=== PATIENT | male | born 2000 | race Caucasian/White ===

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

== ENCOUNTER 2020-08-23 19:57 | Emergency (ER) | payer BC, OTHER ==
[2020-08-23] MEDS ORDERED: MORPHINE SULFATE 4 MG/ML SYRINGE IV STA (20:05)
--- NOTE | 2020-08-23 20:10 | ED ---
Upper Extremity HPI - General Chief Complaint: Extremity Injury, Upper Stated Complaint: R Elbow Injury Time Seen by Provider: 08/23/20 20:02 Source: patient, RN notes reviewed Mode of arrival: ambulatory Limitations: no limitations - History of Present Illness Initial Comments: Patient is a 20-year-old male that presents to emergency department with right elbow injury. He notes his arm resting when he felt a snap/pop in everything can get up. He notes that he is in a significant amount of pain at 7 out of 10 with no relief. He notes decreased epic kaleidoscope analyst strength secondary to pain but is able to move his fingers and full range of motion. He noted that is very painful to move his elbow at this time and would like some pain medication. Patient denied any chest pain shortness of breath headache nausea vomiting diarrhea constipation fever fatigue chills numbness or tingling in his right upper extremity. - Related Data Home Medications Medication Instructions Recorded Confirmed D-Methorphan/PE/Acetaminophen 2 cap PO Q6H PRN 06/19/17 06/19/17 [Vicks Dayquil Liquicaps] Previous Rx's Medication Instructions Recorded Amoxic-Pot Clav 875-125Mg 1 tab PO Q12HR #14 tablet 06/19/17 [Augmentin 875-125] Loratadine [Claritin] 10 mg PO DAILY #30 tab 06/19/17 Azithromycin [Zithromax Z-pack (6 0 mg PO DIRECTED #6 tab 01/15/18 tabs)] Fluticasone Propionate [Flonase 1 - 2 spray EA NOSTRIL DAILY 5 01/15/18 Allergy Relief] Days ml Amoxicillin/Potassium Clav 1 each PO Q12HR #20 tab 03/13/18 [Augmentin 875-125 Tablet] Fluticasone Propionate [Flonase 1 - 2 spray EA NOSTRIL DAILY 5 03/13/18 Allergy Relief] Days ml guaiFENesin-DM 600/30MG [Mucinex 1 each PO Q12HR 5 Days #10 03/13/18 Dm] tab.er.12h HYDROcodone/APAP 7.5-325MG [Marston 1 tab PO Q4H PRN 3 Days #18 tab 08/23/20 7.5-325] Allergies Allergy/AdvReac Type Severity Reaction Status Date / Time No Known Allergies Allergy Verified 08/23/20 20:01 Review of Systems ROS Statement: Those systems with pertinent positive or pertinent negative responses have been documented in the HPI. ROS Other: All systems not noted in ROS Statement are negative. Past Medical History Past Medical History: No Reported History History of Any Multi-Drug Resistant Organisms: None Reported Past Surgical History: Ear Surgery Additional Past Surgical History / Comment(s): RIGHT EAR SURGERY Past Psychological History: No Psychological Hx Reported Past Alcohol Use History: None Reported Past Drug Use History: None Reported General Exam Limitations: no limitations General appearance: alert, in no apparent distress, in distress (Secondary to pain. mild) Head exam: Present: atraumatic, normocephalic, normal inspection Eye exam: Present: normal appearance, PERRL, EOMI. Absent: scleral icterus, conjunctival injection, periorbital swelling Neck exam: Present: normal inspection Respiratory exam: Present: normal lung sounds bilaterally. Absent: respiratory distress, wheezes, rales, rhonchi, stridor Cardiovascular Exam: Present: regular rate, normal rhythm, normal heart sounds. Absent: systolic murmur, diastolic murmur, rubs, gallop, clicks Right Elbow exam: Present: normal inspection, tenderness (To light palpation). Absent: full ROM (Secondary to pain secondary to pain), laceration, ecchymosis, deformity, crepitus, erythema Neurological exam: Present: alert, oriented X3, CN II-XII intact Psychiatric exam: Present: normal affect, normal mood Skin exam: Present: warm, dry, intact, normal color. Absent: rash Course Vital Signs 08/23/20 19:58 Temperature 97.9 F Pulse Rate 109 H Respiratory 18 Rate Blood Pressure 107/58 O2 Sat by Pulse 98 Oximetry Procedures - Orthopedic Splinting/Casting Injury #1 Side: right (Humerus) Upper Extremity Immobilizer: sugar tong splint, Leonides wrap, synthetic pre-padded splint Other Orthopedic Equipment: other (Swelling) Medical Decision Making - Medical Decision Making 20-year-old male complaining of right elbow pain after a wrestling injury. X-ray right elbow, 4 mg of morphine ordered. Patient will be reevaluated after he gets comfortable. Patient arm was splinted, tolerated well had moderate pain. Dr. love was consult that and said he will follow-up outpatient Monday. Case discussed with Dr. Packer, patient discharge home. - Radiology Data Radiology results: report reviewed, image reviewed x double-jointed anti-. There is no evidence of joint effusion. There is acute oblique fracture distal shaft humerus. There is displacement and ileus. Acute spiral fracture distal shaft of the right humerus with 10 mm displaced. Disposition Clinical Impression: Displaced spiral fracture of shaft of right humerus Disposition: HOME SELF-CARE Condition: Stable Instructions (If sedation given, give patient instructions): Arm Fracture in Adults (ED) Additional Instructions: Please return to the Emergency Department if symptoms worsen or any other concerns. Follow-up with Dr. Love on Monday Take pain medication as prescribed throughout the day to cover symptoms. Can alternate with Motrin in between as needed. Wear sling throughout the day and at night. Avoid any shortness activity or movement. Prescriptions: HYDROcodone/APAP 7.5-325MG [Marston 7.5-325] 1 tab PO Q4H PRN 3 Days #18 tab PRN Reason: Severe Pain Is patient prescribed a controlled substance at d/c from ED?: Yes When asked, does pt state using other controlled substances?: No If prescribed controlled substance>3 days was MAPS reviewed?: Prescribed <3 Days If opioid is for acute pain is fill amount 7 days or less?: Yes Referrals: Willy Holt Jr, [Primary Care Provider] - 1-2 days Time of Disposition: 22:00
--- NOTE | 2020-08-23 20:47 | XR ---
EXAMINATION TYPE: XR elbow complete RT DATE OF EXAM: 08/23/2020 COMPARISON: NONE HISTORY: Pain TECHNIQUE: 2 views FINDINGS: The elbow joint is anatomic. There is no evidence of elbow joint effusion. There is acute oblique fracture distal shaft of the humerus. There is displacement 10 mm. IMPRESSION: Acute spiral fracture distal shaft of the humerus with 10 mm displacement.
[2020-08-23] MEDS ORDERED: HYDROmorphone 1 MG/ML 1 ML SYRINGE IVP STA (20:58)
[2020-08-23] MEDS ORDERED: HYDROcodone/APAP 7.5-325MG 1 EACH TAB PO ONE (21:56)
[2020-08-23] MEDS ORDERED: ACET/COD 300 MG/30 MG STARTER PACK 6 TAB BTL PO STA (21:56)
[2020-08-23] MEDS ORDERED: HYDROmorphone 0.5 MG/0.5 ML SYRINGE IVP STA (21:58)
[2020-08-23 22:08] VITALS: BP 144/82; RESP 20; TEMP 98.3
[2020-08-23 22:09] VITALS: PULSE 90
== END 2020-08-23 22:16 | disposition home or self-care (01) ==
LOC: EC 19:57
DX: S42.331A Displaced oblique fracture of shaft of humerus, right arm, initial encounter for closed fracture (principal); X50.0XXA Overexertion from strenuous movement or load, initial encounter
CPT/HCPCS: 73080; 29125; 99283; 96374; 96375; 96376; J2270; J1170 ×2

== ENCOUNTER 2020-09-04 11:18 | Day surgery (SDC) | payer OTHER ==
[2020-09-02 11:27] VITALS: BMI 21.7
[~2020-09-04 11:18] MED LIST: DEXAMETHASONE SOD PHOSPHATE 4 MG/ML 1 ML VIAL IV ONE; LACTATED RINGERS 1,000 ML IV SCH; MIDAZOLAM 2 MG/2 ML VIAL IV PRN; SCOPOLAMINE 1.5MG/72HR PATCH TRANSDERM ONE
[2020-09-04 11:45] VITALS: RESP 16
[2020-09-04] MEDS ORDERED: LIDOCAINE 1% (10MG/ML) FOR IV START INTRADERMA ONE ×2 (11:58→12:23)
[2020-09-04] MEDS: ONDANSETRON 4 MG/2 ML VIAL IVP ONE ×2 (12:05→16:10)
[2020-09-04] MEDS ORDERED: fentaNYL (PF) 50 MCG/ML 2 ML AMP IVP ONE (12:23)
--- NOTE | 2020-09-04 12:59 | P.ANPRN ---
Procedure Note - Anesthesia - Nerve Block Performed Right Supraclavicular Single Time Out Performed: Yes (1222) Date of Procedure: 09/04/20 Procedure Start Time: 12:23 Procedure Stop Time: : Location of Patient: PreOp Indication: Acute Post-Operative Pain, Requested by Surgeon Specifically requested for management of pain by DrDayami: Corona Puckett Sedation Type: Sedate with meaningful contact maintained Preparation: Sterile Prep Position: Supine Catheter: None Needle Types: Pajunk Needle Gauge: 21 Ultrasound used to visualize needle placement: Yes Ultrasound used to observe medication spread: Yes Injectate: 0.5% Ropivacaine (see comment for volume) (30cc) Blood Aspirated: No Pain Paresthesia on Injection Noted: No Resistance on Injection: Normal Image Stored and Saved: Yes Events: Uneventful and Well Tolerated
[2020-09-04] MEDS ORDERED: LIDOCAINE 1% INJ 10MG/ML (20 ML MDV) ONE (13:15)
[2020-09-04] MEDS ORDERED: SODIUM CHLORIDE 0.9% 100 ML BAG ONE (13:15)
[2020-09-04] MEDS ORDERED: PROPOFOL 10 MG/ML 20 ML VIAL IV ONE (13:15)
[2020-09-04] MEDS ORDERED: MIDAZOLAM 2 MG/2 ML VIAL ONE (13:15)
[2020-09-04] MEDS ORDERED: TRANEXAMIC ACID 1,000 MG/10 ML VIAL ONE (13:15)
[2020-09-04] MEDS ORDERED: NEOSTIGMINE 1 MG/ML 10 ML VIAL ONE (13:15)
[2020-09-04] MEDS ORDERED: SUCCINYLCHOLINE CHLORIDE 100 MG/5 ML SYR IV ONE (13:15)
[2020-09-04] MEDS ORDERED: fentaNYL (PF) 50 MCG/ML 2 ML AMP ONE (13:15)
[2020-09-04] MEDS ORDERED: ROCURONIUM 10 MG/ML (5 ML VIAL) IV ONE (13:15)
[2020-09-04] MEDS ORDERED: ROPIVACAINE 5 MG/ML 30 ML VIAL ONE (13:15)
[2020-09-04] MEDS ORDERED: GLYCOPYRROLATE 0.2 MG/ML 2 ML VIAL ONE (13:15)
[2020-09-04] MEDS ORDERED: TRANEXAMIC ACID 1,000 MG in SODIUM CHLORIDE 0.9% 100 ML IVPB PRN (13:46)
[2020-09-04] MEDS ORDERED: LACTATED RINGERS 1,000 ML IV ONE (15:00)
--- NOTE | 2020-09-04 15:18 | XR ---
EXAMINATION TYPE: XR elbow limited RT DATE OF EXAM: 09/04/2020 COMPARISON: NONE HISTORY: Postsurgical TECHNIQUE: 3 view submitted FINDINGS: Postoperative changes noted involving the distal humerus. Some of the orthopedic screws are separate from the fixation plate. IMPRESSION: Postoperative changes.
--- NOTE | 2020-09-04 15:22 | P.OP ---
Date of Procedure: 09/04/20 Procedure(s) Performed: PREOPERATIVE DIAGNOSES: 1. Right distal humeral metaphyseal fracture, spiral displaced extra-articular POSTOPERATIVE DIAGNOSES: 1. Right distal humeral metaphyseal fracture, spiral displaced extra-articular PROCEDURES PERFORMED: 1. Right distal humeral fracture open reduction internal fixation using posterior lateral periarticular plate from [employer] ANESTHESIA: Gen. DIRECTOR OF CAREER RESOURCES: Mitzi Longoria PA-C (assistance with: Patient positioning, retraction, exposure, fixation, hemostasis, closure, dressing, splint) COMPLICATIONS: None ESTIMATED BLOOD LOSS: Approximately 100 ml DISPOSITION: To post-anesthesia care unit INDICATIONS: Jim is a 20-year-old male who was arm wrestling and sustained a displaced and angulated semi-spiral fracture of the distal humerus at the metaphyseal region well above the joint. This happened approximately 10 days ago. I have advised open reduction and fixation. I have explained the risks and potential complications of this surgery as being inclusive of but not limited to bleeding, infection, scarring, discomfort, blood vessel and/or nerve damage, radial and/or ulnar nerve injury, malunion, nonunion, stiffness, hardware irritation, deformity, rotational abnormality, need for further surgery, and other risks. We have extensively discussed the risk of stiffness of the elbow joint, which is something that may occur with this kind of injury. We have discussed the need for rehabilitation and occupational therapy to regain motion. The consent form has been signed. PROCEDURE: After appropriate consent was obtained, the patient was taken to the operating room placed in the supine position. Anesthesia was initiated, and after confirmation of adequate anesthesia, the patient was carefully positioned in the lateral decubitus position. Care was taken to make sure that all pressure points were adequately padded. Bolster was secured with Coban for a posterior approach to the humerus. Prepping and draping were completed in the usual aseptic fashion using ChloraPrep, with the arm being prepped free. Timeout was called, confirming patient identity, side, procedure, and administration of antibiotics. 1 g of IV TXA was given intraoperatively as well. Landmarks were outlined with a skin marking pen including medial and lateral epicondyles, path of ulnar nerve, and olecranon. Incision was created over the posterior aspect of the humerus for a length of approximately 20 cm. The incision was carried down through skin and into subcu tissues until muscular fascia was encountered. Triceps fascia was delineated with sharp dissection, and the apex of the triceps fascia was measured 1 inch proximal to this is the likely location of the radial nerve crossing. This was also correlated with distances of 15 centimeters or so from the lateral joint surface, however considering fracture displacement and area was marked within a 3 cm zone. Incision was then carried through the triceps fascia and into the triceps muscle. Triceps splitting approach was performed, the interval between the long head and lateral heads of the triceps was utilized. Meticulous muscular dissection was performed down to bone and hemostasis was obtained along the way using electrocautery. Radial nerve was identified along with its branches and dissected away from the posterior humerus and protected. Fracture site was then encountered. The hematoma was cleared to adequately reduce the fracture site. The fracture was mobilized and reduction was accomplished with gentle longitudinal traction and a [id number]-tr-[id number] reduction forcep. Final reduction was accomplished using a bone-holding forcep. Three 3.5 mm lag screws were placed across the fracture site from lateral to medial. Provisional pins were then removed, and an 8 hole 3.5 mm precontoured posterior lateral periarticular locking plate was called for and minimally further contoured to match this patient's anatomy on the posterior aspect of the lateral column. The plate was placed as centrally as possible proximally. Care was taken when placing the pl ate to apply the plate between the radial nerve and the humerus proximally. The plate was secured with 1 screw to start with, final adjustments were made to the plate position proximally with care to protect and retract the radial nerve. Range of motion was performed to make sure that there was no impingement in the olecranon fossa by the plate. Full range of motion was noted. [address] aced proximally and one bicortical and 5 locking screws distally and all had good position and length based on C-arm imaging. Fracture alignment was anatomic. The incision was thoroughly irrigated, final hemostasis was obtained using electrocautery, and closure was performed. Fascial closure was performed using O strata fix in running fashion, followed by subcutaneous closure with 2-0 Vicryl suture, followed by running subcuticular closure of strata fix and and Exofin cyanoacrylate glue, followed by topical Opteform. A well-padded well molded posterior splint was placed. Vascular status was satisfactory of the hand. Patient tolerated the procedure well and taken to recovery room in stable condition.
--- NOTE | 2020-09-04 15:41 | FL ---
EXAMINATION TYPE: FL guidance operating room DATE OF EXAM: 09/04/2020 HISTORY: Fluoroscopy time 5 seconds of fluoroscopy provided. IMPRESSION: 1. Fluoroscopy time.
[2020-09-04 15:42] VITALS: TEMP 97.3
[2020-09-04] MEDS: HYDROmorphone 0.5 MG/0.5 ML SYRINGE IVP PRN ×4 (16:00→16:20)
[2020-09-04] MEDS ORDERED: KETOROLAC 15 MG/ML 1 ML VIAL IVP ONE (16:09)
[2020-09-04] MEDS ORDERED: MEPERIDINE 50 MG/ML SYRINGE IVP ONE (16:43)
[2020-09-04] MEDS ORDERED: HYDROcodone/APAP 7.5-325MG 1 EACH TAB ONE (16:57)
[2020-09-04] MEDS ORDERED: HYDROcodone/APAP 7.5-325MG 1 EACH TAB PO ONE (17:03)
[2020-09-04 17:25] VITALS: BP 118/62; PULSE 68
== END 2020-09-04 17:48 ==
LOC: OR 11:18
PROVIDERS: ATTEND Orthopaedic Surgery
DX: S42.491A Other displaced fracture of lower end of right humerus, initial encounter for closed fracture (principal); Y93.72 Activity, wrestling; Z79.1 Long term (current) use of non-steroidal anti-inflammatories (NSAID); Z79.891 Long term (current) use of opiate analgesic; Z97.3 Presence of spectacles and contact lenses
CPT/HCPCS: 64415; 76942; 73070; 24515; C1713; J2250; J1100; J2710; J2175; J0690; J2405; J2001; J3010; J2795; J1885; J0330; J2704; J1170